=== PATIENT | female | born 1960 | race Caucasian/White ===

== ENCOUNTER 2022-07-24 11:36 | Inpatient (IN) ==
--- NOTE | 2022-07-24 11:56 | Emergency Department Note ---
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 The patient states that she is also had a cough which typically was not productive until recently but this cough has been ongoing since the summertime in January. Patient denies any chest pains. The patient has noticed increasing exertional fatigue. Patient does complain of shortness of breath and deconditioning with exercise but is able to perform daily tasks without any issues. Patient denies any nausea vomiting. Patient is lost approximate 10 po unds since last year. This is unintentional. The patient did have a recent chest x-ray and blood work completed in the outpatient setting and was called about the findings of her chest x-ray and scheduled an outpatient CT scan but this was not approved due to insurance issues. Patient denies any leg swelling or calf pain. No history of DVT or PE. No prior history of heart or lung disease. Patient denies any known tick bites and she has not been checked for Lyme's. Patient has trialed [id number] antihistamines for possible allergic cause and did have COVID 3 weeks prior and states that she was on a course of amoxicillin as she did have a productive cough but that the color is returned to being clear. I did review the patient's outpatient chest x-ray which was completed on the 6 which showed the patient does have a large right upper lobe mass like opacity with suspected small right pleural effusion which may represent pneumonia versus underlying mass. Patient also does have a left perihilar and apical opacity which is likely infectious. ROS: See HPI for pertinent positives and negatives. A total of 10 systems were reviewed and otherwise negative. Past medical history: See below Surgical history: See below Social history: See below Physical Exam: GENERAL: NAD, wearing a mask, non-toxic. Thin in appearance. EYE EXAM: Normal conjunctiva. PERRL, no anisocoria and EOM's grossly intact w/o pain. NECK: Supple, no nuchal rigidity, no adenopathy, non-tender. No signs of meningismus. FROM of the neck with good chin to chest and neck extension. No stridor. LUNGS: Slight decreased breath sounds right chest, normal chest wall mechanics. HEART: NSR, no MRG. ABDOMEN: Abdomen soft, non-tender, normo-active bowel sounds, no masses, no rebound or guarding. BACK: No CVA TTP. SKIN: No rashes and no bruising. UPPER EXTREMITIES: Upper extremities are grossly normal. LOWER EXTREMITIES: Grossly normal, no edema. Negative Homans' sign bilaterally. NEURO EXAM: A&O x3, cranial nerves II-XII grossly intact, normal speech, moves all 4 extremities. Differential diagnoses: Reactive airway disease, pneumonia, pneumothorax, COPD, CHF, infections, cardiac ischemia, pulmonary embolism, musculoskeletal, gastrointestinal, as well as other pathologies. Course: Patient was seen and evaluated the bedside. Full history physical exam was performed. EKG interpreted by me Normal sinus rhythm, rate of 82 normal intervals normal axis no ST elevations, T wave version V2 not in V3. No prior EKGs for comparison. Imaging Studies: See Below Cardiac monitoring: An order was placed for continuous cardiac monitoring. The monitor shows a rate of 88 with sinus rhythm. MDM: Patient presents due to concern for shortness of breath with outpatient chest x- ray showing concern for possible mass versus infectious etiology. Blood work is obtained along with CT angiography of the chest. Patient has mild leukopenia and anemia. White count is slightly low at 3.9 with hemoglobin 11. The patient does have hypercalcemia noted at 13. Magnesium slightly low 1.3. The patient was ordered IV fluids because of the hypercalcemia. Patient is positive for the flu negative for RSV and COVID. Patient CT of the chest I did discuss with Dr. Burnett the patient does not have any evidence of PE but the patient does have complete opacification of the right upper and right middle lobes with a masslike opacity which abuts and may invade the mediastinum with SVC narrowing is also abuts the right anterior chest wall. Patient also might have multifocal airspace opacities. The patient was ordered Zosyn and MRSA swab. Given the possible malignancy I did speak the on- call hospitalist Dr. Ferguson and Isabela Kulkarni PA-C. I did speak with the patient as well as the patient's daughter who is a sports medicine physician and did review the findings with the patient and the patient's daughter. They are agreeable to inpatient treatment and further care at this time. Patient was admitted to the medicine service. Patient is not in significant respiratory distress. Pulm consulted. Past Med/Surg History Medical History Fibroid Melanoma Surgical History History of bowel resection at age 38 due to volvulus, 8in removed S/P colonoscopy S/P inguinal hernia repair S/P tonsillectomy S/P wisdom tooth extraction Status post hysteroscopic polypectomy x2 Status post labral repair of shoulder left Family History Denies family history of Ovarian cancer Breast cancer Colorectal cancer Uterine cancer Social History Smoking Status: Never smoker Hx Alcohol Use: Yes Hx Substance Use: No marital status: Current Living Situation: Family Feels Safe at Home: Yes Allergies Allergies Allergy/AdvReac Type Severity Reaction Status Date / Time No Known Allergies Allergy Verified 07/24/22 15:03 Home Meds Home Medications Medication Instructions Recorded Confirmed multivitamin 1 tab PO DAILY 01/05/21 07/24/22 cholecalciferol (vitamin D3) 50 50 mcg PO DAILY 07/24/22 07/24/22 mcg (2,000 unit) capsule (Vitamin D3) magnesium glycinate 100 mg tablet 100 mg PO HS PRN LEG CRAMPS 07/24/22 07/24/22 psyllium husk 3.4 gram/5.4 gram 1 tsp PO DAILY 07/24/22 07/24/22 oral powder (Metamucil) Results & Data (ED) Vital Signs Vital Signs - 24 hr 07/24/22 11:44 07/24/22 13:36 07/24/22 15:00 Temperature 36.8 C Temperature Source Temporal Artery Scan Pulse Rate 91 H Pulse Rate [Right Finger] 83 83 Respiratory Rate 18 18 20 Respiratory Effort / Characteristics Non-Labored Spontaneous Non-Labored Respiratory Depth Normal Normal Blood Pressure 129/80 Blood Pressure [Right Arm] 120/67 135/86 Blood Pressure Mean 96 Blood Pressure Mean [Right Arm] 84 102 Pulse Oximetry 95 99 94 Oxygen Delivery Method Room Air Room Air Room Air Sepsis Recent Fever Within 48 Hours No Sepsis New/Unexplained Change in Mental Status No Sepsis Action Taken by Nursing No Action Required Home Medications Current Medication List: was personally reviewed by me Laboratory Data Attestation: I reviewed the patient's lab results. Result diagrams: 07/24/22 12:00 07/24/22 12:00 Lab Results 07/24/22 07/24/22 07/24/22 Range/Units 12:00 12:00 12:00 WBC 3.94 L (4.8-10.8) K/ul RBC 4.14 (3.93-5.22) M/uL Hgb 11.1 L (12.0-16.0) g/dl Hct 33.9 L (34.1-44.9) % MCV 81.9 (80.0-100.0) fL MCH 26.8 (25.0-34.0) pg MCHC 32.7 (32.0-36.0) g/dL RDW Std Deviation 43.3 (36.4-46.3) fL RDW Coeff of Aroldo 14.6 H (11.5-14.5) % Plt Count 260 (130-400) K/uL MPV 10.4 (9.4-12.3) fL Immature Gran % (Auto) 0.5 % Neut % (Auto) 59.9 % Lymph % (Auto) 24.1 % Irion % (Auto) 12.9 % Eos % (Auto) 1.8 % Baso % (Auto) 0.8 % Neut # (Auto) 2.36 (1.4-6.5) K/uL Lymph # (Auto) 0.95 L (1.2-3.4) K/uL Irion # (Auto) 0.51 (0.24-0.82) K/uL Eos # (Auto) 0.07 (0-0.50) K/uL Baso # (Auto) 0.03 (0-0.2) K/uL Immature Gran # (Auto) 0.02 (0.00-0.02) K/uL Sodium (136-145) mmol/L Potassium (3.5-5.1) mmol/L Chloride (98-107) mmol/L Carbon Dioxide (21-32) mmol/L Anion Gap (3-11) BUN (6-23) mg/dl Creatinine (0.6-1.2) mg/dl Est Cr Clr Drug Dosing ml/min Est GFR ( Amer) ml/min Est GFR (Non-Af Amer) ml/min BUN/Creatinine Ratio (10-20) Glucose (70-99(Fasting)) mg/dl Calcium (8.5-10.1) mg/dl Phosphorus (2.5-4.9) mg/dl Magnesium (1.7-2.4) mg/dl Total Bilirubin (0.2-1.0) mg/dl AST (13-39) U/L ALT (7-52) U/L Alkaline Phosphatase (34-104) U/L Troponin I High Sens (0-14) pg/ml Total Protein (6.0-8.3) gm/dl Albumin (3.4-5.0) gm/dl Globulin (2.5-4.0) gm/dl Albumin/Globulin Ratio (0.9-2) 25-OH Vitamin D Total (30-100) ng/ml Procalcitonin (0-0.5) ng/ml TSH 1.540 (0.300-4.500) uIu/ml Nasal Screen MRSA (PCR) (Negative) Lyme Disease IgG Ab Negative (Negative) Lyme Disease IgM Ab Negative (Negative) SARS-CoV-2 (PCR) (Negative) Influenza Type A (PCR) (Neg) Influenza Type B (PCR) (Neg) RSV (RT-PCR) (Neg) 07/24/22 07/24/22 07/24/22 Range/Units 12:00 12:00 12:00 WBC (4.8-10.8) K/ul RBC (3.93-5.22) M/uL Hgb (12.0-16.0) g/dl Hct (34.1-44.9) % MCV (80.0-100.0) fL MCH (25.0-34.0) pg MCHC (32.0-36.0) g/dL RDW Std Deviation (36.4-46.3) fL RDW Coeff of Aroldo (11.5-14.5) % Plt Count (130-400) K/uL MPV (9.4-12.3) fL Immature Gran % (Auto) % Neut % (Auto) % Lymph % (Auto) % Irion % (Auto) % Eos % (Auto) % Baso % (Auto) % Neut # (Auto) (1.4-6.5) K/uL Lymph # (Auto) (1.2-3.4) K/uL Irion # (Auto) (0.24-0.82) K/uL Eos # (Auto) (0-0.50) K/uL Baso # (Auto) (0-0.2) K/uL Immature Gran # (Auto) (0.00-0.02) K/uL Sodium 138 (136-145) mmol/L Potassium 3.8 (3.5-5.1) mmol/L Chloride 104 (98-107) mmol/L Carbon Dioxide 27 (21-32) mmol/L Anion Gap 7 (3-11) BUN 31 H (6-23) mg/dl Creatinine 1.08 (0.6-1.2) mg/dl Est Cr Clr Drug Dosing 48.2 ml/min Est GFR ( Amer) 63.3 ml/min Est GFR (Non-Af Amer) 54.6 ml/min BUN/Creatinine Ratio 28.7 H (10-20) Glucose 90 (70-99(Fasting)) mg/dl Calcium 13.1 H* (8.5-10.1) mg/dl Phosphorus 3.6 (2.5-4.9) mg/dl Magnesium 1.3 L (1.7-2.4) mg/dl Total Bilirubin 0.3 (0.2-1.0) mg/dl AST 18 (13-39) U/L ALT 16 (7-52) U/L Alkaline Phosphatase 61 (34-104) U/L Troponin I High Sens 3.8 (0-14) pg/ml Total Protein 6.5 (6.0-8.3) gm/dl Albumin 3.5 (3.4-5.0) gm/dl Globulin 3.0 (2.5-4.0) gm/dl Albumin/Globulin Ratio 1.2 (0.9-2) 25-OH Vitamin D Total (30-100) ng/ml Procalcitonin 0.19 (0-0.5) ng/ml TSH (0.300-4.500) uIu/ml Nasal Screen MRSA (PCR) (Negative) Lyme Disease IgG Ab (Negative) Lyme Disease IgM Ab (Negative) SARS-CoV-2 (PCR) (Negative) Influenza Type A (PCR) (Neg) Influenza Type B (PCR) (Neg) RSV (RT-PCR) (Neg) 07/24/22 07/24/22 07/24/22 Range/Units 12:00 14:27 15:05 WBC (4.8-10.8) K/ul RBC (3.93-5.22) M/uL Hgb (12.0-16.0) g/dl Hct (34.1-44.9) % MCV (80.0-100.0) fL MCH (25.0-34.0) pg MCHC (32.0-36.0) g/dL RDW Std Deviation (36.4-46.3) fL RDW Coeff of Aroldo (11.5-14.5) % Plt Count (130-400) K/uL MPV (9.4-12.3) fL Immature Gran % (Auto) % Neut % (Auto) % Lymph % (Auto) % Irion % (Auto) % Eos % (Auto) % Baso % (Auto) % Neut # (Auto) (1.4-6.5) K/uL Lymph # (Auto) (1.2-3.4) K/uL Irion # (Auto) (0.24-0.82) K/uL Eos # (Auto) (0-0.50) K/uL Baso # (Auto) (0-0.2) K/uL Immature Gran # (Auto) (0.00-0.02) K/uL Sodium (136-145) mmol/L Potassium (3.5-5.1) mmol/L Chloride (98-107) mmol/L Carbon Dioxide (21-32) mmol/L Anion Gap (3-11) BUN (6-23) mg/dl Creatinine (0.6-1.2) mg/dl Est Cr Clr Drug Dosing ml/min Est GFR ( Amer) ml/min Est GFR (Non-Af Amer) ml/min BUN/Creatinine Ratio (10-20) Glucose (70-99(Fasting)) mg/dl Calcium (8.5-10.1) mg/dl Phosphorus (2.5-4.9) mg/dl Magnesium (1.7-2.4) mg/dl Total Bilirubin (0.2-1.0) mg/dl AST (13-39) U/L ALT (7-52) U/L Alkaline Phosphatase (34-104) U/L Troponin I High Sens (0-14) pg/ml Total Protein (6.0-8.3) gm/dl Albumin (3.4-5.0) gm/dl Globulin (2.5-4.0) gm/dl Albumin/Globulin Ratio (0.9-2) 25-OH Vitamin D Total 59.0 (30-100) ng/ml Procalcitonin (0-0.5) ng/ml TSH (0.300-4.500) uIu/ml Nasal Screen MRSA (PCR) Negative (Negative) Lyme Disease IgG Ab (Negative) Lyme Disease IgM Ab (Negative) SARS-CoV-2 (PCR) NEGATIVE (Negative) Influenza Type A (PCR) Positive A* (Neg) Influenza Type B (PCR) Negative (Neg) RSV (RT-PCR) Negative (Neg) Administered Medications Sodium Chloride (Nss 1000ml) 1,000 mls @ 150 mls/hr IV .[id number] ROGER Stop: 08/23/22 15:14 Last Admin: 07/24/22 15:29 Dose: 150 mls/hr Documented By: DANIELLE Discontinued Medications Sodium Chloride (Nss 1000ml) 1,000 mls @ 999 mls/hr IV .Q1H1M ONE Stop: 07/24/22 14:12 Last Infusion: 07/24/22 14:48 Dose: 0 mls/hr Documented By: Admin: 07/24/22 13:38 Dose: 999 mls/hr Documented By: RADHA Piperacillin Sod/Tazobactam Sod (Zosyn) 4.5 gm in 120 mls @ 240 mls/hr IV NOW ONE Stop: 07/24/22 14:32 Last Infusion: 07/24/22 15:33 Dose: 0 mls/hr Documented By: Admin: 07/24/22 15:03 Dose: 240 mls/hr Documented By: RADHA Ioversol (Optiray 320 500ml) 114 ml IV ONCE ONE Stop: 07/24/22 13:29 Last Admin: 07/24/22 13:31 Dose: 114 ml Documented By: EDK Imaging Data Radiologist's Impression: Chest CTA 07/24/22 12:13 CT ANGIOGRAPHY OF THE CHEST, PULMONARY EMBOLUS PROTOCOL CLINICAL HISTORY: Dyspnea. Cough. COMPARISON STUDY: Chest radiograph July 20, 2022. TECHNIQUE: Following IV administration of 114 mL of Optiray, helical axial images of the chest were obtained utilizing the pulmonary embolus protocol. Maximal intensity projections and sagittal and coronal reformats were viewed on an independent 3D workstation. IV contrast was administered without complication. Automated exposure control was utilized for the study. A dose lowering technique was utilized adhering to the principles of ALARA. CT DOSE: 295.37 mGy.cm FINDINGS: No pulmonary emboli are identified. However, multiple right-sided pulmonary arteries, including the distal right main pulmonary artery are significantly narrowed by a mass-like abnormality within the right upper and right middle lobes. This measures approximately 20 x 12 x 11.5 cm. The entire right upper and right middle lobes are opacified with occlusion of the right upper lobe and right middle lobe bronchi. Differentiation between a suspected central right lung mass and collapsed lung is difficult on this examination. This mass-like opacity abuts and may invade the mediastinum and likely narrows the SVC. This also abuts the anterior right chest wall. No associated rib erosi on is present. There is no pneumothorax or pleural effusion. There are mild tree-in-bud and groundglass opacities within the right lower lobe. Multifocal left lung airspace opacities are noted within a bronchovascular distribution. There is associated mild interlobular septal thickening. Size of the heart is normal. There is no pericardial effusion. There are prominent hypodensity within the lymph nodes. There may be mildly enlarged left hilar lymph nodes as well. No suspicious lesions within the bony thorax are noted. Visualized portions of the upper abdomen are unremarkable. IMPRESSION: 1. No pulmonary emboli identified although multiple right sided pulmonary arteries significantly narrowed by a mass-like opacity within the right upper and right middle lobes. 2. Complete opacification of the right upper and right middle lobes with a mass- like opacity which abuts and may invade the mediastinum with SVC narrowing. This also abuts the right anterior chest wall. Differentiation between a suspected central lung mass and collapsed lung is difficult however the findings are highly suggestive of an underlying neoplasm. Occluded right upper and right middle lobe bronchi with narrowing of the right lower lobe bronchus. Pulmonary consultation for consideration for bronchoscopy is recommended. 3. Moderate left lung multifocal airspace opacities within a bronchovascular distribution. Associated groundglass opacities with interlobular septal thickening. This may reflect multifocal pneumonia. However, a neoplastic process is also within the differential. 4. Prominent AP window lymph nodes and suspected mildly enlarged left hilar lymph nodes. ACT 112: Positive. There are findings on this exam that require communication between the performing entity and the patient following Patient Test Result Information Act ([place] Act 112) guidelines. Electronically signed by: Carmine Burnett M.D. 07/24/2022 1:59 PM Discharge Plan Visit Data Chief Complaint: Cough Stated Complaint: COUGH, SOB, ABNORMAL FINDINGS ON IMAGING ED Provider: Andrew Barnes Discharge Problem: Mass of right lung, Hypercalcemia, Pneumonia, Dyspnea, Chronic cough Forms Stand Alone Forms: [facility] Prescriptions Prescriptions: No Action multivitamin Tablet 1 tab PO DAILY cholecalciferol (vitamin D3) [Vitamin D3] 50 mcg (2,000 unit) Capsule 50 mcg PO DAILY magnesium glycinate 100 mg Tablet 100 mg PO HS PRN (Reason: LEG CRAMPS) Metamucil 3.4 gram/5.4 gram Powder 1 tsp PO DAILY Rx Instructions: mix into at least 4 oz water or juice before administering Referrals Referrals: Rina Schafer DO [Primary Care Provider] - : Pneumonia Qualifiers: Aspiration pneumonia type: unspecified Laterality: unspecified laterality Lung location: unspecified part of lung
[2022-07-24 12:20] LABS: Basophils # (auto) 0.03 K/uL (0-0.2); Basophils % (auto) 0.8 %; Eosinophils # (auto) 0.07 K/uL (0-0.50); Eosinophils % (auto) 1.8 %; Hematocrit (blood only) 33.9 % (34.1-44.9); Hemoglobin 11.1 g/dl (12.0-16.0); Immature Granulocytes # (auto) 0.02 K/uL (0.00-0.02); Immature Granulocytes % (auto) 0.5 %; Lymphocytes # (auto) 0.95 K/uL (1.2-3.4); Lymphocytes % (auto) 24.1 %; Mean Corpuscular Hemoglobin 26.8 pg (25.0-34.0); Mean Corpuscular Hgb Conc 32.7 g/dL (32.0-36.0); Mean Corpuscular Volume 81.9 fL (80.0-100.0); Mean Platelet Volume 10.4 fL (9.4-12.3); Monocytes # (auto) 0.51 K/uL (0.24-0.82); Monocytes % (auto) 12.9 %; Neutrophils # (auto) 2.36 K/uL (1.4-6.5); Neutrophils % (auto) 59.9 %; Platelet Count 260 K/uL (130-400); RDW Coefficient of Variation 14.6 % (11.5-14.5); RDW Standard Deviation 43.3 fL (36.4-46.3); Red Blood Count 4.14 M/uL (3.93-5.22); White Blood Count 3.94 K/ul (4.8-10.8)
[2022-07-24 13:01] LABS: Albumin Globulin Ratio 1.2 (0.9-2); Albumin Level 3.5 gm/dl (3.4-5.0); BUN Creatinine Ratio 28.7 (10-20); Bilirubin,Total 0.3 mg/dl (0.2-1.0); Calcium 13.1 mg/dl (8.5-10.1); Creatinine Clr Calc Pharmacy 48.2 ml/min; Est GFR (African American) 63.3 ml/min; Est GFR (Non-African American) 54.6 ml/min; Potassium 3.8 mmol/L (3.5-5.1); Total Protein 6.5 gm/dl (6.0-8.3); Troponin I High Sensitivity 3.8 pg/ml (0-14)
[2022-07-24 13:07] LABS: Lyme Ab IgG w/WB Rflx Negative (Negative); Lyme Ab IgM w/WB Rflx Negative (Negative)
[2022-07-24] MEDS ORDERED: SODIUM CHLORIDE 0.9% 1000ML 1,000 ML IV ONE (13:12)
[2022-07-24] MEDS ORDERED: OPTIRAY 320 500ml IV ONE (13:28)
--- NOTE | 2022-07-24 14:01 | CT Scan Report ---
CT ANGIOGRAPHY OF THE CHEST, PULMONARY EMBOLUS PROTOCOL CLINICAL HISTORY: Dyspnea. Cough. COMPARISON STUDY: Chest radiograph July 20, 2022. TECHNIQUE: Following IV administration of 114 mL of Optiray, helical axial images of the chest were o btained utilizing the pulmonary embolus protocol. Maximal intensity projections and sagittal and cor onal reformats were viewed on an independent 3D workstation. IV contrast was administered without co mplication. Automated exposure control was utilized for the study. A dose lowering technique was ut ilized adhering to the principles of ALARA. CT DOSE: 295.37 mGy.cm FINDINGS: No pulmonary emboli are identified. However, multiple right-sided pulmonary arteries, incl uding the distal right main pulmonary artery are significantly narrowed by a mass-like abnormality wi thin the right upper and right middle lobes. This measures approximately 20 x 12 x 11.5 cm. The entir e right upper and right middle lobes are opacified with occlusion of the right upper lobe and right m iddle lobe bronchi. Differentiation between a suspected central right lung mass and collapsed lung is difficult on this examination. This mass-like opacity abuts and may invade the mediastinum and likel y narrows the SVC. This also abuts the anterior right chest wall. No associated rib erosion is presen t. There is no pneumothorax or pleural effusion. There are mild tree-in-bud and groundglass opacities within the right lower lobe. Multifocal left lung airspace opacities are noted within a bronchovascu lar distribution. There is associated mild interlobular septal thickening. Size of the heart is ruddy l. There is no pericardial effusion. There are prominent hypodensity within the lymph nodes. There ma y be mildly enlarged left hilar lymph nodes as well. No suspicious lesions within the bony thorax are noted. Visualized portions of the upper abdomen are unremarkable. IMPRESSION: 1. No pulmonary emboli identified although multiple right sided pulmonary arteries significantly narr owed by a mass-like opacity within the right upper and right middle lobes. 2. Complete opacification of the right upper and right middle lobes with a mass-like opacity which ab uts and may invade the mediastinum with SVC narrowing. This also abuts the right anterior chest wall. Differentiation between a suspected central lung mass and collapsed lung is difficult however the fi ndings are highly suggestive of an underlying neoplasm. Occluded right upper and right middle lobe br onchi with narrowing of the right lower lobe bronchus. Pulmonary consultation for consideration for b ronchoscopy is recommended. 3. Moderate left lung multifocal airspace opacities within a bronchovascular distribution. Associated groundglass opacities with interlobular septal thickening. This may reflect multifocal pneumonia. Ho wever, a neoplastic process is also within the differential. 4. Prominent AP window lymph nodes and suspected mildly enlarged left hilar lymph nodes. ACT 112: Positive. There are findings on this exam that require communication between the performing entity and the patient following Patient Test Result Information Act ([place] Act 112) guidelines. Electronically signed by: Carmine Burnett M.D. 07/24/2022 1:59 PM
[2022-07-24] MEDS ORDERED: PIPERACILLIN/TAZOBACTAM 4.5 GM/120 ML BAG IV ONE (14:03)
--- NOTE | 2022-07-24 14:30 | History & Physical Report ---
Date of Service July 24, 2022 Assessment & Plan (1) Mass of right lung: Plan: - Ongoing SOB and dry cough for 6 months, coupled with 10 lb weight loss, hypercalcemia--all very concerning for a malignancy. - VSS, she is satting 95-99% on RA. Does have a productive cough during visit. - CXR 07/20 (outpatient): Large right upper lobe mass-like opacity with suspected small right pleural effusion. This may represent a large focus of pneumonia however an underlying mass cannot be excluded. A CT of the chest with IV contrast is recommended for further evaluation. This finding will be called/faxed to the ordering provider at time of dictation. Left perihilar and a pical opacity which is likely infectious but can be assessed on follow-up CT. - Chest CTA 07/24: * Complete opacification of the right upper and right middle lobes with a mass- like opacity, approximately 20 x 12 x 11.5 cm, which abuts and may invade the mediastinum with SVC narrowing. This also abuts the right anterior chest wall. Differentiation between a suspected central lung mass and collapsed lung is difficult however the findings are highly suggestive of an underlying neoplasm. Occluded right upper and right middle lobe bronchi with narrowing of the right lower lobe bronchus. Pulmonary consultation for consideration for bronchoscopy is recommended. * Moderate left lung multifocal airspace opacities within a bronchovascular distribution. Associated groundglass opacities with interlobular septal thickening. This may reflect multifocal pneumonia. However, a neoplastic process is also within the differential. * Prominent AP window lymph nodes and suspected mildly enlarged left hilar lymph nodes. * No pulmonary emboli identified although multiple right sided pulmonary arteries significantly narrowed by a mass-like opacity within the right upper and right middle lobes. - Pulmonology consulted on admission, appreciate recommendations and assistance with this patient. - A procalcitonin and COVID/flu/RSV are all pending. Will hold off further antibiotics unless procal elevated, per pulmonology recommendations. (2) Hypercalcemia: Plan: - 13.1, given the large right lung mass, hypercalcemia very concerning for underlying malignancy. Does take a vitamin D supplement at home, approrpiate dosing. - Fluids in the ER, will continue IV fluids. - PTH, PTh-RTH, vtiamin D, iCal, phosphorus, magnesium all ordered--pending. - Repeat BMP this evening and in AM. Plan - Admit to med/tele. - SCDs, Lovenox for VTE ppx. - Full Code. 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 Patient has had an ongoing nonproductive cough since January with progressive fatigue and ex ertional shortness of breath since then. She has also lost 10 pounds over the last year, which has been unintentional. Since the summer, she has noticed new shortness of breath with walking up hills and exercising. She is previously very healthy and active, working out 5-7 days/week without difficulty previous to this summer. She has had several upper respiratory illnesses in the past 2 months, one at the end of May which was not COVID, and most recently had COVID 3 weeks ago and was treated with outpatient antibiotics and initially thought she recovered, however shortness of breath returned, worse than normal and is causing her to be significantly dyspneic after walking up and down the stairs. She was recently seen as an outpatient for this and had CXR and blood work done. She received a call about findings on her CXR, and was to have an outpatient CT scan done yesterday, however insurance did not approve this. On presentation, her vital signs are within normal limits and stable. She is 99% on room air. Labs are remarkable for a leukopenia of 3.94, Hgb 11.1, platelets within normal limits. Calcium 13.1. CXR from 07/20 shows a large right upper lobe masslike opacity, measuring 12.6 x 8.5 cm with suspected small right pleural effusion, possibly representing underlying mass cannot be excluded. Chest CTA in ED today shows complete opacification of the right upper and middle lobes with masslike opacity with abuts and may invade mediastinum with SVC narrowing, also abuts the right anterior chest wall. Suspected central lung mass versus collapsed lung, however read as highly suspicious for underlying neoplasm per radiology. There is also an occluded right upper and right middle lobe bronchi with narrowing of the right lower bronchus. There is also moderate left lung multifocal airspace opacities within a bronchovascular distribution, associated groundglass opacities with interlobular septal thickening, possibly reflection of multifocal pneumonia versus neoplastic process. There are prominent AP window lymph nodes if suspected mildly enlarged left hilar lymph nodes. Pulmonary emboli identified, however there are multiple right-sided pulmonary artery significantly narrowed by the masslike opacity within the right upper and middle lobes. Allergies Allergy/AdvReac Type Severity Reaction Status Date / Time No Known Allergies Allergy Verified 07/24/22 15:03 Home Medications Medication Instructions Recorded Confirmed Type multivitamin 1 tab PO DAILY 01/05/21 07/24/22 History cholecalciferol (vitamin D3) 50 50 mcg PO DAILY 07/24/22 07/24/22 History mcg (2,000 unit) capsule (Vitamin D3) magnesium glycinate 100 mg tablet 100 mg PO HS PRN LEG CRAMPS 07/24/22 07/24/22 History psyllium husk 3.4 gram/5.4 gram 1 tsp PO DAILY 07/24/22 07/24/22 History oral powder (Metamucil) Past Med/Surg History Medical History Fibroid Melanoma Surgical History History of bowel resection at age 38 due to volvulus, 8in removed S/P colonoscopy S/P inguinal hernia repair S/P tonsillectomy S/P wisdom tooth extraction Status post hysteroscopic polypectomy x2 Status post labral repair of shoulder left Family History Denies family history of Ovarian cancer Breast cancer Colorectal cancer Uterine cancer Social History Smoking Status: Never smoker Second Hand Exposure: No; Hx Alcohol Use: Yes Alcohol type: beer Hx Substance Use: No Preferred Language: Korean Communication Ability: Effective Label Pinker Required: No Beliefs That Will Affect Care: None marital status: Current Living Situation: Spouse Feels Safe at Home: Yes Assistive Devices: None Review of Systems Review of Systems: Constitutional: Fatigue and general weakness ongoing for the past several weeks; 10 pound weight loss over the past year, denies night sweats Eyes: No diplopia, no worsening or blurred vision ENT: normal hearing, no trouble swallowing Respiratory: Progressive shortness of breath with exertion, cough +/- production since January, significantly worse in the past month Cardiovascular: No chest pain, tightness or palpitations Abdomen: No pain, nausea, vomiting, diarrhea or constipation Musculoskeletal: No joint pain, calf pain, swelling Neurologic: No weakness, numbness/tingling, or balance problems Psychiatric: No anxiety or depression Skin: No rash or itch Physical Exam Physical Exam: General: awake, alert, no apparent distress Head: Normocephalic, atraumatic ENT: PERRL, EOMI, no pharyngeal exudate, mucous membranes moist Chest: Clear to auscultation, on room air, no adventitious breath sounds Cardiac: Regular rate and rhythm, no murmur, no JVD, normal peripheral pulses, good capillary refill Abdominal: NABS x 4 quadrants, soft, nontender to palpation, no rebound, guarding or tenderness Extremities: Normal inspection, no peripheral edema or erythema, calfs nonte nder to palpation Psych: Normal mood and affect Neuro: AAO x 3, strength intact bilaterally and rated 5/5, no motor deficits, speech is clear, no peripheral sensory deficits Skin: no rash or erythema Results & Data Results & Data ([facility]) Vital Signs (Past 12 Hours) Vital Signs Temp Pulse Pulse Resp BP BP Pulse Ox 07/24/22 13:36 83 18 120/67 99 07/24/22 11:44 36.8 C 91 H 18 129/80 95 O2 Del Method 07/24/22 13:36 Room Air 07/24/22 11:44 Room Air Laboratory Results Abnormal lab results 07/24/22 07/24/22 Range/Units 12:00 12:00 WBC 3.94 L (4.8-10.8) K/ul Hgb 11.1 L (12.0-16.0) g/dl Hct 33.9 L (34.1-44.9) % RDW Coeff of Aroldo 14.6 H (11.5-14.5) % Lymph # (Auto) 0.95 L (1.2-3.4) K/uL BUN 31 H (6-23) mg/dl BUN/Creatinine Ratio 28.7 H (10-20) Calcium 13.1 H* (8.5-10.1) mg/dl Diagnostic Findings Chest CTA 07/24/22 12:13 CT ANGIOGRAPHY OF THE CHEST, PULMONARY EMBOLUS PROTOCOL CLINICAL HISTORY: Dyspnea. Cough. COMPARISON STUDY: Chest radiograph July 20, 2022. TECHNIQUE: Following IV administration of 114 mL of Optiray, helical axial images of the chest were obtained utilizing the pulmonary embolus protocol. Maximal intensity projections and sagittal and coronal reformats were viewed on an independent 3D workstation. IV contrast was administered without complication. Automated exposure control was utilized for the study. A dose lowering technique was utilized adhering to the principles of ALARA. CT DOSE: 295.37 mGy.cm FINDINGS: No pulmonary emboli are identified. However, multiple right-sided pulmonary arteries, including the distal right main pulmonary artery are significantly narrowed by a mass-like abnormality within the right upper and right middle lobes. This measures approximately 20 x 12 x 11.5 cm. The entire right upper and right middle lobes are opacified with occlusion of the right upper lobe and right middle lobe bronchi. Differentiation between a suspected central right lung mass and collapsed lung is difficult on this examination. This mass-like opacity abuts and may invade the mediastinum and likely narrows the SVC. This also abuts the anterior right chest wall. No associated rib erosion is present. There is no pneumothorax or pleural effusion. There are mild tree-in-bud and groundglass opacities within the right lower lobe. Multifocal left lung airspace opacities are noted within a bronchovascular distribution. There is associated mild interlobular septal thickening. Size of the heart is normal. There is no pericardial effusion. There are prominent hypodensity within the lymph nodes. There may be mildly enlarged left hilar lymph nodes as well. No suspicious lesions within the bony thorax are noted. Visualized portions of the upper abdomen are unremarkable. IMPRESSION: 1. No pulmonary emboli identified although multiple right sided pulmonary arteries significantly narrowed by a mass-like opacity within the right upper and right middle lobes. 2. Complete opacification of the right upper and right middle lobes with a mass- like opacity which abuts and may invade the mediastinum with SVC narrowing. This also abuts the right anterior chest wall. Differentiation between a suspected central lung mass and collapsed lung is difficult however the findings are highly suggestive of an underlying neoplasm. Occluded right upper and right middle lobe bronchi with narrowing of the right lower lobe bronchus. Pulmonary consultation for consideration for bronchoscopy is recommended. 3. Moderate left lung multifocal airspace opacities within a bronchovascular distribution. Associated groundglass opacities with interlobular septal thic kening. This may reflect multifocal pneumonia. However, a neoplastic process is also within the differential. 4. Prominent AP window lymph nodes and suspected mildly enlarged left hilar lymph nodes. ACT 112: Positive. There are findings on this exam that require communication between the performing entity and the patient following Patient Test Result Information Act ([place] Act 112) guidelines. Electronically signed by: Carmine Burnett M.D. 07/24/2022 1:59 PM ECG Additional Comments: Normal sinus rhythm Possible Left atrial enlargement Borderline ECG No previous ECGs available Code Status & VTE Plan Code Status Full Code. Supervising Physician Co-Signing Physician Notes I personally saw and examined the patient. I verified all prieto points and agree with Isabela Kulkarni PA-C with the following exceptions and/or additions: 61 year old female presents to the ER due to mass on right lung, concerning for SCC given concurrent hypercalcemia. Feeling fatigued but no definitive muscle weakness. No paresthesia or constipation. O/E Cachectic, Chest CTAB, HS1+2, no murmurs A/P Mass on lung - discussed with pulmonology to consider bronchoscopy on Tuesday. Consult pulmonology. Procalcitonin negative - low suspicion of bacterial infection, this all appears to be cancer and will defer antibiotics. Cepheid PCR ordered. Hypercalcemia - corrected calcium 13.5 in moderate range, ionized in mild range. Main reason for admission, will rehydrate as she appears to be somewhat dry. Although PTH suggests she will need bisphosphonate, will defer this depending on her calcium levels tomorrow. Vit D WNL. PTHrP sent PG Care Time/CCT Total # of Minutes Spent Total Time Spent with Patient: Total time spent is greater than 50% in coordination of care (as documented) at patient's floor/unit and/or counseling patient: Coding Level of Care Code 89591 Initial Inpt Care Lvl 3 Diagnoses Mass of right lung R91.8 Hypercalcemia E83.52
[2022-07-24] MEDS: SODIUM CHLORIDE 0.9% 1000ML 1,000 ML IV SCH ×2 (15:29→23:34)
[2022-07-24 15:57] LABS: Magnesium 1.3 mg/dl (1.7-2.4); Phosphorus 3.6 mg/dl (2.5-4.9)
[2022-07-24 15:59] LABS: Influenza B virus by PCR Negative (Neg); RSV by PCR Negative (Neg); SARS CoV2 RNA(COVID-19) Ceph NEGATIVE (Negative)
[2022-07-24 16:09] LABS: Influenza A virus by PCR Positive (Neg)
--- NOTE | 2022-07-24 16:24 | Pulmonary Consultation ---
Date of Consultation July 24, 2022 Assessment & Plan (1) Mass of right lung: (2) Hypercalcemia: Plan Highly suspect primary lung cancer with evidence of large right upper lobe mass and malignant hypercalcemia. Possible lymphangitic spread to the left upper lobe as well versus pneumonia. Bronchoscopic biopsy can be performed early next week by one my colleagues since I will be off after Tuesday. MRI brain ordered for staging purposes. Patient will need outpatient PET scan. Recommend making oncology aware. Agree with IV fluids for hypercalcemia. Check PTH RP. Agree with broad-spectrum antibiotics. History of Present Illness Reason for Consultation: Large lung mass suspicious for lung cancer. History of Present Illness 61-year-old female with a history of melanoma excised 30 years ago, colon resection 20 years ago who presented to the hospital due to cough and weakness. He has been having significant weight loss over the last few weeks. She was found to have malignant hypercalcemia on presentation and she had a CT of her chest which revealed a very large right upper lobe lung mass with postobstructive collapse and subcarinal lymphadenopathy concerning for malignancy. Patient's daughter is a physician and I discussed the case with her at bedside. She is a lifelong non-smoker. No family history of lung cancer. Allergies Allergy/AdvReac Type Severity Reaction Status Date / Time No Known Allergies Allergy Verified 07/24/22 15:03 Home Medications Medication Instructions Recorded Confirmed Type multivitamin 1 tab PO DAILY 01/05/21 07/24/22 History cholecalciferol (vitamin D3) 50 50 mcg PO DAILY 07/24/22 07/24/22 History mcg (2,000 unit) capsule (Vitamin D3) magnesium glycinate 100 mg tablet 100 mg PO HS PRN LEG CRAMPS 07/24/22 07/24/22 History psyllium husk 3.4 gram/5.4 gram 1 tsp PO DAILY 07/24/22 07/24/22 History oral powder (Metamucil) Patient History Medical History Fibroid Melanoma Surgical History History of bowel resection at age 38 due to volvulus, 8in removed S/P colonoscopy S/P inguinal hernia repair S/P tonsillectomy S/P wisdom tooth extraction Status post hysteroscopic polypectomy x2 Status post labral repair of shoulder left Family History Denies family history of Ovarian cancer Breast cancer Colorectal cancer Uterine cancer Social History Smoking Status: Never smoker Hx Alcohol Use: Yes Hx Substance Use: No marital status: Current Living Situation: Family Feels Safe at Home: Yes Review of Systems Review of Systems: All systems reviewed & are unremarkable except as noted in HPI & below Physical Exam Physical Exam: Constitutional: Very thin appearing female in no apparent distress. Eyes: Pupils are equal round and reactive to light. Conjunctivae are normal. Anicteric sclera. Ears nose, mouth and throat: Mallampati class []. Normal posterior oropharynx. Uvula is midline. Neck: Trachea is midline. Visual inspection is normal. Respiratory: Diminished on the right. No wheezes. Cardiovascular: Regular rate and rhythm. No murmurs. No edema. Gastrointestinal: Normal bowel sounds, soft, nontender and nondistended. No hepatosplenomegaly noted. Musculoskeletal: No cyanosis. Patient is able to move all extremities. Strength is 5 out of 5 in the upper and lower extremities. Skin: No rashes, warm dry and intact. Neurologic: No obvious focal neurological deficits seen. Psychiatric: Alert and oriented x3 with a euthymic affect. Results & Data Results & Data ([facility]) Vital Signs (Past 12 Hours) Vital Signs Temp Pulse Pulse Resp BP BP Pulse Ox 07/24/22 15:00 83 20 135/86 94 07/24/22 13:36 83 18 120/67 99 07/24/22 11:44 36.8 C 91 H 18 129/80 95 O2 Del Method 07/24/22 15:00 Room Air 07/24/22 13:36 Room Air 07/24/22 11:44 Room Air PG Care Time/CCT Total # of Minutes Spent Total Time Spent with Patient: Total time spent is greater than 50% in coordination of care (as documented) at patient's floor/unit and/or counseling patient: Coding Level of Care Code 74419 Inpt Consult Level 4 Diagnoses Mass of right lung R91.8 Hypercalcemia E83.52
[2022-07-24] MEDS ORDERED: LORazepam 2 MG/1 ML VIAL IV STA (16:55)
[2022-07-24] MEDS ORDERED: GADOBUTROL 65ML VIAL IV ONE (17:19)
--- NOTE | 2022-07-24 18:01 | Magnetic Resonance Report ---
MRI OF THE BRAIN WITHOUT AND WITH IV CONTRAST CLINICAL HISTORY: Abnormal chest CT. Evaluate for metastatic disease. COMPARISON STUDY: No previous studies for comparison. TECHNIQUE: Utilizing a 1.5 Shyanne magnet and dedicated coil, multiplanar, multiecho imaging of the br ain was performed pre and postcontrast administration. IV administration of Gadavist contrast was un eventful. Thin cut T1 post contrast imaging was performed. FINDINGS: This study is mildly compromised by motion artifact although is diagnostic. There are no fo ci of restricted diffusion to suggest acute infarct. No acute intracranial hemorrhage, midline shift or mass effect is present. Brain volume is normal. Ventricular system is normal. Basal cisterns are p atent. There are no extra axial collections. Flow-voids for the major intracranial vessels are presen t. There is no intracranial mass or pathologic enhancement. A few small white matter T2 hyperintense foci suggest mild small vessel disease. No suspicious calvarial replacement is present. There are air -fluid levels within the maxillary and sphenoid sinuses. IMPRESSION: 1. No evidence of metastatic disease. 2. No acute intracranial findings. 3. Maxillary and sphenoid sinus air-fluid levels. This could reflect acute sinusitis. ACT 112: Negative or not required by law. Electronically signed by: Carmine Burnett M.D. 07/24/2022 5:59 PM
[2022-07-24] MEDS ORDERED: ALUMINUM/MAGNESIUM SUSP 30 ML UDC PO PRN (20:06)
[2022-07-24] MEDS ORDERED: POLYETHYLENE (MIRALAX) 17 GM PACK PO PRN (20:06)
[2022-07-24] MEDS ORDERED: ENOXAPARIN INJ 40 MG/0.4 ML SYR SQ SCH (20:06)
[2022-07-24] MEDS ORDERED: NON-FORMULARY MEDICATION (Magnesium Glycinate 100 mg Tablet) PO PRN (20:06)
[2022-07-24 20:44] LABS: BUN Creatinine Ratio 25.7 (10-20); Calcium 11.7 mg/dl (8.5-10.1); Creatinine Clr Calc Pharmacy 47.8 ml/min; Est GFR (African American) 62.6 ml/min; Potassium 3.6 mmol/L (3.5-5.1)
[2022-07-24] MEDS: ACETAMINOPHEN 325 MG TAB PO PRN (21:45)
[2022-07-24] MEDS ORDERED: PNEUMOCOCCAL POLYSACCHARIDES 25 MCG/0.5 ML VIAL/SYR IM ONE (21:59)
[2022-07-25] MEDS: ACETAMINOPHEN 325 MG TAB PO PRN ×2 (03:34→08:14)
[2022-07-25] MEDS: SODIUM CHLORIDE 0.9% 1000ML 1,000 ML IV SCH ×3 (06:07→17:51)
[2022-07-25 07:31] LABS: Basophils # (auto) 0.02 K/uL (0-0.2); Basophils % (auto) 0.6 %; Eosinophils # (auto) 0.01 K/uL (0-0.50); Eosinophils % (auto) 0.3 %; Hematocrit (blood only) 28.7 % (34.1-44.9); Hemoglobin 9.5 g/dl (12.0-16.0); Immature Granulocytes # (auto) 0.01 K/uL (0.00-0.02); Immature Granulocytes % (auto) 0.3 %; Lymphocytes # (auto) 1.04 K/uL (1.2-3.4); Lymphocytes % (auto) 31.3 %; Mean Corpuscular Hemoglobin 26.7 pg (25.0-34.0); Mean Corpuscular Hgb Conc 33.1 g/dL (32.0-36.0); Mean Corpuscular Volume 80.6 fL (80.0-100.0); Mean Platelet Volume 10.8 fL (9.4-12.3); Monocytes % (auto) 15.1 %; Neutrophils # (auto) 1.74 K/uL (1.4-6.5); Neutrophils % (auto) 52.4 %; Platelet Count 195 K/uL (130-400); RDW Coefficient of Variation 14.7 % (11.5-14.5); Red Blood Count 3.56 M/uL (3.93-5.22); White Blood Count 3.32 K/ul (4.8-10.8)
--- NOTE | 2022-07-25 07:39 | Hospitalist Progress Note ---
Date of Service July 25, 2022 Assessment & Plan (1) Mass of right lung: Plan: 61-year-old woman with past medical history of melanoma s/p excision (approximately 30 years ago), volvulus c/b colonic resection (~20 years ago) who presented to hospital with progressive dyspnea on exertion, fatigue and admitted for right lung mass, viral pneumonia. Right lung mass/hypercalcemia -Nonproductive cough, worsening fatigue, dyspnea on exertion since January. Unintentional 10 pound weight loss since April. Patient is a lifelong non- smoker without family history of lung cancer. -CXR 07/20 showed large right upper lobe opacity 12.6 x 8.5 cm. Chest CTA showed complete opacification of right upper and middle lobes with masslike opacity possibly invading mediastinum (SVC narrowing), right anterior chest wall. -Leukopenia 3.94, calcium 13.1 noted on admission. PTH 2.7, PTHrP pending. Patient received 1 dose of IV Zosyn in the ED, MRSA nares swab negative. -Pulmonary consult: Suspect primary lung cancer, malignant hypercalcemia with possible lymphangitic spread to left upper lobe as well (vs pneumonia). MRI brain ordered for staging purposes (negative). Also recommended outpatient PET scan. * Empiric antibiotic therapy: IV ceftriaxone 2 g every 24 hours * Continue IV fluids for hypercalcemia, PTHrP pending * Bronchoscopic biopsy scheduled for Tuesday. N.p.o. at midnight. * Oncology made aware Influenza A * Oseltamavir 75 mg twice daily * Flonase nasal spray, ipratropium nasal spray for nasal congestion * As needed Tylenol, ibuprofen as needed for headache, fever * Zofran for nausea Code: Full code Dispo: Med-Surg telemetry FEN/GI: NPO@midnight ,NSS, regular diet DVT Prophylaxis: Lovenox 40 mg q24h PT/OT: No Consults: Pulmonary (2) Dyspnea: (3) Chronic cough: (4) Hypercalcemia: (5) Pneumonia: Admission and Anticipated Discharge Date Admission Date: July 24, 2022 Subjective No acute events overnight. Patient resting in bed comfortably on arrival. She complains of headache and cough. Otherwise, she denies chest pain, shortness of breath, nausea, or vomiting. Review of Systems Review of Systems: All systems reviewed & are unremarkable except as noted in HPI & below Physical Exam Physical Exam: General: Thin-appearing, but otherwise alert, interactive woman in no acute distress. HEENT: Normocephalic, atraumatic. EOM intact. Good conjugate gaze. Nares patent. Moist mucosal membranes. Neck: Supple. No lymphadenopathy. Normal ROM. CV: Regular rate and rhythm. Normal S1 and S2. No murmurs gallops or rubs. Respiratory: Normal respiratory effort. Lungs clear to auscultation bilaterally. No crackles, rhonchi, or wheezes. Abdomen: Soft, nondistended abdomen. No bruits heard on auscultation. No tenderness to deep palpation. No guarding or rebound. Extremities: Capillary refill <2 sec. 2+ dp equal bilaterally. No pedal edema. Neuro: Alert and oriented x3. Skin: Clean, dry, and intact. No rashes, bruises, or erythema. Results & Data Results & Data ([facility]) Vital Signs (Past 12 Hours) Vital Signs Temp Pulse Pulse Resp BP BP Pulse Ox 07/25/22 03:28 37.5 C 97 H 18 142/80 H 100 07/25/22 00:05 100 H 07/24/22 23:32 94 H 18 134/63 90 07/24/22 23:37 37.6 C H 07/24/22 19:59 84 07/24/22 22:15 07/24/22 19:42 37 C 89 18 144/80 H 97 07/24/22 21:48 37 C 89 18 144/80 H 97 07/24/22 19:42 37.0 C 89 18 144/80 H 97 O2 Del Method 07/25/22 03:28 Room Air 07/25/22 00:05 07/24/22 23:32 Room Air 07/24/22 23:37 07/24/22 19:59 07/24/22 22:15 Room Air 07/24/22 19:42 Room Air 07/24/22 21:48 Room Air 07/24/22 19:42 Room Air Resident Activity Tracking Resident Involvement: Resident Care Provided Care Provided: Adult Hospital Medicine (1) Pneumonia Aspiration pneumonia type: unspecified Laterality: unspecified laterality Lung location: unspecified part of lung
[2022-07-25 07:56] LABS: BUN Creatinine Ratio 22.5 (10-20); Calcium 10.8 mg/dl (8.5-10.1); Creatinine Clr Calc Pharmacy 59.9 ml/min; Est GFR (African American) 79.9 ml/min; Potassium 3.3 mmol/L (3.5-5.1)
[2022-07-25] MEDS: FLUTICASONE PROPIONATE NA SPR 16 GM BTL SCH (08:13)
[2022-07-25] MEDS: PSYLLIUM or GUAR GUM FIBER POWDER PACKET PO SCH (08:14)
[2022-07-25] MEDS: MAGNESIUM SULFATE / D5W 1 GM/100 ML BAG IV SCH ×4 (08:14→13:52)
[2022-07-25] MEDS: CHOLECALCIFEROL 1,000 UNITS 25 MCG TAB PO SCH (08:14)
[2022-07-25] MEDS: MULTIVITAMIN TAB PO SCH (08:14)
[2022-07-25] MEDS: OSELTAMIVIR PHOSPHATE SUSP 75 MG/12.5 ML UDP PO SCH ×2 (10:00→20:11)
[2022-07-25] MEDS ORDERED: IPRATROPIUM BROMIDE NASAL SPRAY 0.06% 15ML NAE PRN (10:07)
[2022-07-25] MEDS: ONDANSETRON INJ 2 MG/ML 2 ML VIAL IV PRN ×2 (11:34→20:15)
[2022-07-25] MEDS ORDERED: IBUPROFEN 200 MG TAB PO STA (14:16)
--- NOTE | 2022-07-25 15:33 | Communication Note ---
Date of Service: July 25, 2022 The patient was seen and examined by me. Case discussed with resident physician. Agree with assessment and plan. Hypercalcemia has been corrected down to 10.8. Pulmonary consultation noted. She needs a bronchoscopy procedure which hopefully can be done tomorrow, July 26. Brain MRI scan is negative for metastatic disease. She appears to have a primary right upper lobe lung malignancy. She has a headache which she normally takes ibuprofen at home for which has been ordered. Lung sounds are diminished bilaterally with no rales or wheezing. Heart rhythm is regular.
--- NOTE | 2022-07-25 15:33 | Billing Data ---
Date of Service July 25, 2022 Coding Level of Care Code 94967 Subseq Hosp Care Lvl 2
--- NOTE | 2022-07-25 15:50 | Pulmonology Progress Note ---
Date of Service July 25, 2022 Assessment & Plan (1) Mass of right lung: (2) Hypercalcemia: Plan Highly suspect primary lung cancer with evidence of large right upper lobe mass and malignant hypercalcemia. Possible lymphangitic spread to the left upper lobe as well versus pneumonia. I attempted transthoracic needle aspiration using ultrasound guidance today. I was able to aspirate minimal material which will be sent to the lab. Bronchoscopic biopsy can be performed early next week by one my colleagues since I will be off after today. MRI brain negative for metastatic lesions. Patient will need outpatient PET scan. Recommend making oncology aware. Agree with IV fluids for hypercalcemia. Check PTH RP. Admission and Anticipated Discharge Date Admission Date: July 24, 2022 Subjective Patient denies any significant shortness of breath at rest or cough. No fevers or chills. Review of Systems Review of Systems: All systems reviewed & are unremarkable except as noted in HPI & below Physical Exam Physical Exam: Constitutional: Very thin appearing female in no apparent distress. Eyes: Pupils are equal round and reactive to light. Conjunctivae are normal. Anicteric sclera. Ears nose, mouth and throat: Mallampati class []. Normal posterior oropharynx. Uvula is midline. Neck: Trachea is midline. Visual inspection is normal. Respiratory: Diminished on the right. No wheezes. Cardiovascular: Regular rate and rhythm. No murmurs. No edema. Gastrointestinal: Normal bowel sounds, soft, nontender and nondistended. No hepatosplenomegaly noted. Musculoskeletal: No cyanosis. Patient is able to move all extremities. Skin: No rashes, warm dry and intact. Neurologic: No obvious focal neurological deficits seen. Psychiatric: Alert and oriented x3 with a euthymic affect. Results & Data Results & Data ([facility]) Vital Signs (Past 12 Hours) Vital Signs Temp Pulse Pulse Resp BP Pulse Ox O2 Del Method 07/25/22 15:26 86 07/25/22 11:39 37.2 C 90 18 134/66 92 Room Air 07/25/22 07:30 Room Air 07/25/22 06:03 93 H 07/25/22 07:50 37.2 C 95 H 18 141/74 H 91 Room Air PG Care Time/CCT Total # of Minutes Spent Total Time Spent with Patient: Total time spent is greater than 50% in coordination of care (as documented) at patient's floor/unit and/or counseling patient: Coding Level of Care Code 53465 Subseq Hosp Care Lvl 2 Diagnoses Mass of right lung R91.8 Hypercalcemia E83.52
[2022-07-25] MEDS ORDERED: LIDOCAINE 1% LOCAL 20 ML VIAL ONE (16:42)
--- NOTE | 2022-07-25 17:16 | Hospitalist Progress Note ---
Date of Service July 25, 2022 Assessment & Plan (1) Mass of right lung: Plan: Comments are preliminary based on chart review and discussion with the team only, I have not been able to speak directly with patient nor examine her. Situation unfortunately relatively straightforward with a large and complex right upper lung mass which is certainly malignant. It looks like there is potential involvement of nodes in the hilum and AP window though there is no clear indication of distant metastases based on available imaging. This includes MRI scan of the brain which shows no brain mets. Diagnostic bronchoscopy is scheduled for tomorrow. I have asked our staff to schedule her in the cancer center this Tuesday to see me so that we may be efficiently moving forward with prognosis and treatment option discussions anticipating that we should have pathology back by then from tomorrow's procedure. Prior to discharge I would assure that she has received a dose of Zometa to keep her calcium stable and as well it would be helpful if we can do a CT scan of the abdomen and pelvis. That should be the more completely assess for visceral metastases and gives us at least a fair assessment for any dramatic bony metastases. 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 Pivotal issue will be small cell versus non-small cell histology with the former requiring urgent initiation of chemotherapy. Even if this is a non-small cell lung cancer,she is not an a priori surgical candidate given the extent of the right lung involvement and we would probably be talking about additional chemotherapy anyway. Role for chemoradiation will depend on histology and ultimate determination of the presence or absence of more distant metastases. Plan Please formally consult if you or she have questions that need to be addressed prior to discharge. Otherwise as above would make sure she receives a dose of Zometa and hopefully can schedule a CT scan of the abdomen and pelvis prior to discharge. Bronchoscopy will be pivotal in determining histology, we will plan to see her in the office on July 30 to move to next steps in prognosis and treatment option discussions Admission and Anticipated Discharge Date Admission Date: July 24, 2022 Subjective Informally consulted on this patient who seems to be presenting with a new right lung cancer Physical Exam Physical Exam: Patient was not directly examined, comments are based on review of chart and discussion with the inpatient team Results & Data Results & Data ([facility]) Vital Signs (Past 12 Hours) Vital Signs Temp Pulse Pulse Resp BP Pulse Ox O2 Del Method 07/25/22 16:17 37.0 C 81 18 132/71 90 Room Air 07/25/22 15:26 86 07/25/22 11:39 37.2 C 90 18 134/66 92 Room Air 07/25/22 07:30 Room Air 07/25/22 06:03 93 H 07/25/22 07:50 37.2 C 95 H 18 141/74 H 91 Room Air Laboratory Results Abnormal lab results 07/24/22 07/24/22 07/24/22 Range/Units 17:55 17:55 20:17 WBC (4.8-10.8) K/ul RBC (3.93-5.22) M/uL Hgb (12.0-16.0) g/dl Hct (34.1-44.9) % RDW Coeff of Aroldo (11.5-14.5) % Lymph # (Auto) (1.2-3.4) K/uL Potassium (3.5-5.1) mmol/L Chloride (98-107) mmol/L BUN 28 H (6-23) mg/dl BUN/Creatinine Ratio 25.7 H (10-20) Calcium 11.7 H (8.5-10.1) mg/dl Ionized Calcium 1.74 H* (1.12-1.32) mmol/L PTH Intact 2.7 L (12.0-88.0) pg/ml 07/25/22 07/25/22 Range/Units 06:25 06:25 WBC 3.32 L (4.8-10.8) K/ul RBC 3.56 L (3.93-5.22) M/uL Hgb 9.5 L (12.0-16.0) g/dl Hct 28.7 L (34.1-44.9) % RDW Coeff of Aroldo 14.7 H (11.5-14.5) % Lymph # (Auto) 1.04 L (1.2-3.4) K/uL Potassium 3.3 L (3.5-5.1) mmol/L Chloride 108 H (98-107) mmol/L BUN (6-23) mg/dl BUN/Creatinine Ratio 22.5 H (10-20) Calcium 10.8 H (8.5-10.1) mg/dl Ionized Calcium (1.12-1.32) mmol/L PTH Intact (12.0-88.0) pg/ml Diagnostic Findings Chest CTA 07/24/22 12:13 CT ANGIOGRAPHY OF THE CHEST, PULMONARY EMBOLUS PROTOCOL CLINICAL HISTORY: Dyspnea. Cough. COMPARISON STUDY: Chest radiograph July 20, 2022. TECHNIQUE: Following IV administration of 114 mL of Optiray, helical axial images of the chest were obtained utilizing the pulmonary embolus protocol. Maximal intensity projections and sagittal and coronal reformats were viewed on an independent 3D workstation. IV contrast was administered without complication. Automated exposure control was utilized for the study. A dose lowering technique was utilized adhering to the principles of ALARA. CT DOSE: 295.37 mGy.cm FINDINGS: No pulmonary emboli are identified. However, multiple right-sided pulmonary arteries, including the distal right main pulmonary artery are significantly narrowed by a mass-like abnormality within the right upper and right middle lobes. This measures approximately 20 x 12 x 11.5 cm. The entire right upper and right middle lobes are opacified with occlusion of the right upper lobe and right middle lobe bronchi. Differentiation between a suspected central right lung mass and collapsed lung is difficult on this examination. This mass-like opacity abuts and may invade the mediastinum and likely narrows the SVC. This also abuts the anterior right chest wall. No associated rib erosion is present. There is no pneumothorax or pleural effusion. There are mild tree-in-bud and groundglass opacities within the right lower lobe. Multifocal left lung airspace opacities are noted within a bronchovascular distribution. There is associated mild interlobular septal thickening. Size of the heart is normal. There is no pericardial effusion. There are prominent hypodensity within the lymph nodes. There may be mildly enlarged left hilar lymph nodes as well. No suspicious lesions within the bony thorax are noted. Visualized portions of the upper abdomen are unremarkable. IMPRESSION: 1. No pulmonary emboli identified although multiple right sided pulmonary arteries significantly narrowed by a mass-like opacity within the right upper and right middle lobes. 2. Complete opacification of the right upper and right middle lobes with a mass- like opacity which abuts and may invade the mediastinum with SVC narrowing. This also abuts the right anterior chest wall. Differentiation between a suspected central lung mass and collapsed lung is difficult however the findings are highly suggestive of an underlying neoplasm. Occluded right upper and right middle lobe bronchi with narrowing of the right lower lobe bronchus. Pulmonary consultation for consideration for bronchoscopy is recommended. 3. Moderate left lung multifocal airspace opacities within a bronchovascular distribution. Associated groundglass opacities with interlobular septal thickening. This may reflect multifocal pneumonia. However, a neoplastic process is also within the differential. 4. Prominent AP window lymph nodes and suspected mildly enlarged left hilar lymph nodes. ACT 112: Positive. There are findings on this exam that require communication between the performing entity and the patient following Patient Test Result Information Act ([place] Act 112) guidelines. Electronically signed by: Carmine Burnett M.D. 07/24/2022 1:59 PM Brain MRI 07/24/22 16:09 MRI OF THE BRAIN WITHOUT AND WITH IV CONTRAST CLINICAL HISTORY: Abnormal chest CT. Evaluate for metastatic disease. COMPARISON STUDY: No previous studies for comparison. TECHNIQUE: Utilizing a 1.5 Shyanen magnet and dedicated coil, multiplanar, multiecho imaging of the brain was performed pre and postcontrast administration. IV administration of Gadavist contrast was uneventful. Thin cut T1 post contrast imaging was performed. FINDINGS: This study is mildly compromised by motion artifact although is diagnostic. There are no foci of restricted diffusion to suggest acute infarct. No acute intracranial hemorrhage, midline shift or mass effect is present. Brain volume is normal. Ventricular system is normal. Basal cisterns are patent. There are no extra axial collections. Flow-voids for the major intracranial vessels are present. There is no intracranial mass or pathologic enhancement. A few small white matter T2 hyperintense foci suggest mild small vessel disease. No suspicious calvarial replacement is present. There are air-fluid levels within the maxillary and sphenoid sinuses. IMPRESSION: 1. No evidence of metastatic disease. 2. No acute intracranial findings. 3. Maxillary and sphenoid sinus air-fluid levels. This could reflect acute sinusitis. ACT 112: Negative or not required by law. Electronically signed by: Carmine Burnett M.D. 07/24/2022 5:59 PM PG Care Time/CCT Total # of Minutes Spent Total Time Spent with Patient: Total time spent is greater than 50% in coordination of care (as documented) at patient's floor/unit and/or counseling patient: Coding Level of Care Code None Diagnoses Mass of right lung R91.8
--- NOTE | 2022-07-25 17:45 | XRay Report ---
XR chest 1V portable HISTORY: 61 years-old Female s/p transthoracic needle aspiration of RUL mass follow-up study in a pa tient with right upper lobe mass COMPARISON: CTA chest 07/24/2022 TECHNIQUE: AP view of the chest FINDINGS: Cardiomediastinal and hilar silhouettes are unchanged. There is a large masslike opacity again noted involving the majority of the right hemithorax along with left perihilar airspace opacities. No pneum othorax or large pleural effusion. No overt pulmonary edema. Bones appear grossly intact. IMPRESSION: 1. No pneumothorax. 2. Large masslike opacity involving the majority of the right hemithorax redemonstrated along with le ft perihilar airspace opacities. Findings are better characterized on yesterday's CTA of the chest. ACT 112: Negative or not required by law. The above report was generated using voice recognition software. It may contain grammatical, syntax o r spelling errors. Electronically signed by: Lorne Smart M.D. 07/25/2022 5:42 PM
[2022-07-25] MEDS: cefTRIAXone SODIUM 2,000 MG in DEXTROSE 5% 50 ML IV SCH (17:50)
--- NOTE | 2022-07-25 18:34 | Procedure Note ---
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 Appropriate imaging studies were reviewed prior to the procedure. Patient was placed in semi-recumbent and limited thoracic ultrasound was performed of the right chest. See separate imaging. The site appropriate for needle biopsy was selected. The skin was prepped and draped in normal sterile fashion. Lidocaine was used for local anal gesia. I performed several passes of the right upper lobe mass using a 22-gauge needle an 18-gauge needle which was then flushed into formalin and saline. The patient tolerated the procedure well [place] [id number]
[2022-07-25] MEDS: IBUPROFEN 200 MG TAB PO PRN (20:10)
[2022-07-26] MEDS: SODIUM CHLORIDE 0.9% 1000ML 1,000 ML IV SCH ×2 (01:38→10:52)
--- NOTE | 2022-07-26 05:56 | Electrocardiogram Report ---
Test Reason : Blood Pressure : / mmHG Vent. Rate : 082 BPM Atrial Rate : 082 BPM P-R Int : 118 ms QRS Dur : 108 ms QT Int : 344 ms P-R-T Axes : 085 067 066 degrees QTc Int : 401 ms Normal sinus rhythm Possible Left atrial enlargement Incomplete right bundle branch block No previous ECGs available Confirmed by Lex Morse ([id number]) on 07/26/2022 5:55:39 AM Referred By: Rina Schafer Confirmed By:Lex Morse
--- NOTE | 2022-07-26 08:11 | Pulmonology Progress Note ---
Date of Service July 26, 2022 Assessment & Plan (1) Mass of right lung: (2) Hypercalcemia: Plan Impression: 61-year-old female with right upper lobe lung mass and malignant hypercalcemia. Possible infiltrate in the left upper lobe consistent with infectious process. Recommendations: 1. Lung mass: The patient underwent transthoracic needle aspiration yesterday. Pathology is currently pending but will not likely be available until later today or likely first thing tomorrow. Discussed with the patient as well as with her daughter on the phone. They would like to proceed with bronchoscopy acknowledging the fact that we may have diagnostic material already present. They were under the impression that a bronchoscopy would give definitive diagnosis immediately. I advised them that although we would have rapid onsite cytologic evaluation, this information would not be actionable and would require final definitive diagnosis by pathology which again would take the same amount of time as the transthoracic needle specimens. After discussion, they have elected to proceed with bronchoscopy this morning acknowledging that we may already have a tissue diagnosis. She can likely be discharged after the procedure is completed and follow-up with oncology on Tuesday as noted in the medical oncology consultation. 2. Questionable pneumonia left upper lobe. Recommend completing course of second-generation cephalosporin orally for additional 5 days and then stop. Fol low-up imaging per radiation oncology. 3. Patient to follow-up with Dr. Grider in the outpatient pulmonary clinic if needed. Will complete bronchoscopy today and then the patient will be eligible for discharge. Feel free to contact us with questions or concerns Admission and Anticipated Discharge Date Admission Date: July 24, 2022 Subjective Patient seen and examined. 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 Patient is awake alert and conversant. She is on room air. She denies any pain from a previous biopsy site. Has been made n.p.o. for bronchoscopy this morning. No new complaints or concerns. Review of Systems Review of Systems: All systems reviewed & are unremarkable except as noted in Subjective Physical Exam Constitutional: WD/WN, vitals as above ENMT: Mallampati Class: II Neck: trachea midline, no thyromegaly Respiratory: normal respiratory effort, lungs clear to auscultation Cardiovascular: RRR, no murmur, no edema Gastrointestinal (Abdomen): normal bowel sounds, soft, nontender, no hepatosplenomegaly Musculoskeletal: Extremities: extremities normal to inspection Skin: no rashes, warm and dry Neurologic: Nonfocal exam Lymphatic: no cervical lymphadenopathy Results & Data Results & Data ([facility]) Vital Signs (Past 12 Hours) Vital Signs Temp Pulse Pulse Resp BP Pulse Ox O2 Del Method 07/26/22 07:41 Room Air 07/26/22 06:01 91 H 07/26/22 02:54 36.6 C 65 16 119/70 92 Room Air 07/25/22 23:37 36.7 C 71 16 134/74 92 Room Air 07/25/22 23:17 72 Critical Care Results & Data Vital Signs (Past 12 Hours) Vital Signs Temp Pulse Pulse Resp BP Pulse Ox O2 Del Method 07/26/22 07:41 Room Air 07/26/22 06:01 91 H 07/26/22 02:54 36.6 C 65 16 119/70 92 Room Air 07/25/22 23:37 36.7 C 71 16 134/74 92 Room Air 07/25/22 23:17 72 Lab & Micro Results (Past 24 Hours) No Data to Display No Data to Display No Data to Display Microbiology 07/24/22 14:25 Aerobic Blood Culture - Preliminary Blood No growth in Aerobic bottle after 24 hours. Anaerobic Blood Culture - Preliminary No growth in Anaerobic bottle after 24 hours. 07/24/22 14:25 Aerobic Blood Culture - Preliminary Blood No growth in Aerobic bottle after 24 hours. Anaerobic Blood Culture - Preliminary No growth in Anaerobic bottle after 24 hours. Diagnostic Findings (Past 24 Hours) Chest X-Ray 07/25/22 17:18 XR chest 1V portable HISTORY: 61 years-old Female s/p transthoracic needle aspiration of RUL mass follow-up study in a patient with right upper lobe mass COMPARISON: CTA chest 07/24/2022 TECHNIQUE: AP view of the chest FINDINGS: Cardiomediastinal and hilar silhouettes are unchanged. There is a large masslike opacity again noted involving the majority of the right hemithorax along with left perihilar airspace opacities. No pneumothorax or large pleural effusion. No overt pulmonary edema. Bones appear grossly intact. IMPRESSION: 1. No pneumothorax. 2. Large masslike opacity involving the majority of the right hemithorax redemonstrated along with left perihilar airspace opacities. Findings are better characterized on yesterday's CTA of the chest. ACT 112: Negative or not required by law. The above report was generated using voice recognition software. It may contain grammatical, syntax or spelling errors. Electronically signed by: Lorne Smart M.D. 07/25/2022 5:42 PM I & O Totals 24 Hours 07/25/22 07/26/22 07/27/22 06:59 06:59 06:59 Intake Total 3202.5 / 3202.5 4307.500 / 4307.500 Balance 3202.5 / 3202.5 4307.500 / 4307.500 Cumulative 07/24/22 11:36 thru 07/26/22 06:00 Intake Total 7510.000 Balance 7510.000 RT Ventilator Mngmt (Last Documented) Ventilator Ordered Settings Respiratory Rate 16 07/26/22 02:54 Ventilator - PT Measurements Respiratory Rate 16 PG Care Time/CCT Total # of Minutes Spent Total Time Spent with Patient: Total time spent is greater than 50% in coordination of care (as documented) at patient's floor/unit and/or counseling patient: Coding Level of Care Code 38347 Subseq Hosp Care Lvl 3 Diagnoses Mass of right lung R91.8 Hypercalcemia E83.52
[2022-07-26] MEDS ORDERED: MIDAZOLAM HCL 5 MG/ML 1 ML VIAL ONE (08:15)
[2022-07-26] MEDS ORDERED: fentaNYL citrate 100 MCG/2 ML VIAL ONE ×2 (08:15→08:50)
--- NOTE | 2022-07-26 08:25 | Pre Anesthesia Assessment ---
Date of Service July 26, 2022 Pre Sedation Assessment Vital Signs Temp Pulse Pulse Resp BP BP Pulse Ox 07/26/22 08:18 86 18 116/71 95 07/26/22 07:41 07/26/22 06:01 91 H 07/26/22 02:54 36.6 C 65 16 119/70 92 07/25/22 23:37 36.7 C 71 16 134/74 92 07/25/22 23:17 72 07/25/22 19:47 36.8 C 69 18 114/67 92 07/25/22 19:43 07/25/22 16:17 37.0 C 81 18 132/71 90 07/25/22 15:26 86 07/25/22 11:39 37.2 C 90 18 134/66 92 O2 Del Method 07/26/22 08:18 Room Air 07/26/22 07:41 Room Air 07/26/22 06:01 07/26/22 02:54 Room Air 07/25/22 23:37 Room Air 07/25/22 23:17 07/25/22 19:47 Room Air 07/25/22 19:43 Room Air 07/25/22 16:17 Room Air 07/25/22 15:26 07/25/22 11:39 Room Air Pre-Sedation Airway Assessment Smoking Status: Never smoker Hx Sleep Apnea: No Short, Thick Neck: No Thyromental Distance: > or= 3.5 Finger Breadths Oral Cavity: + WNL Mallampati Class: I ASA: ASA2 NPO Status Date of Last Intake of Fluids: 07/25/22 Date of Last Intake of Solid Food: 07/25/22 Notes The planned sedation has been discussed with the patient. Informed Consent was obtained. I have identified the patient, determined the appropriateness of sedation and have assessed the patient immediately prior to the procedure. All medicine(s) and interventions are by my order.
[2022-07-26] MEDS ORDERED: MIDAZOLAM HCL 1 MG/ML 2ML VIAL ONE ×2 (08:36→08:50)
--- NOTE | 2022-07-26 09:19 | Procedure Note ---
Procedure Note Date of Service July 26, 2022 Note Procedure: Fiberoptic bronchoscopy Endobronchial ultrasound evaluation during bronchoscopy Endobronchial ultrasound with transbronchial needle aspiration of lymph nodes, 3 stations Bronchoalveolar lavage Conscious sedation Provider: Clay Perea MD Consent: Signed by patient and timeout verified prior to procedure. Sedation start: 827 Sedation end: 859 Conscious sedation: 200 mcg fentanyl, 8 mg Versed, topical lidocaine per RT protocol Estimated blood loss: 10 mL Indication: Abnormal CT scan Procedure: Patient was brought to the bronchoscopy suite. Consent was verified. Appropriate radiographic studies had been reviewed prior to the procedure. Standard monitoring was applied. Oxygen was administered. Patient underwent a transthoracic needle aspiration yesterday with pathology pending. I discussed with the patient and her daughter options to include proceeding with procedure today given the fact that we may already have a tissue diagnosis versus waiting. They elected to proceed acknowledging the risks. After topical anesthesia of the airways per respiratory therapy protocol, the fiberoptic scope was advanced through the oropharynx via the bite-block. Oropharynx was unremarkable. Vocal cords were visualized and were normal in function and appearance. Topical anesthesia of the cords was achieved with instillation of lidocaine through the scope. Scope was then passed through the vocal cords. The trachea was midline. Main lemuel was sharp. Anesthesia of the lower airways was achieved with instillation of lidocaine through the scope. A sequential and systematic examination of the lower airways was conducted. The right-sided airways were abnormal with significant extrinsic compression of the right upper lobe and bronchus intermedius. I was not able to pass the scope into the right upper lobe. We were able to get down to the RC 3 region. And the mucosa appeared hyperemic and congested. Left-sided airways were patent and the mucosa appeared normal. There were significant mucopurulent secretions emanating from the left upper lobe which were collected with a BAL of the left upper lobe. This will be sent for microbiologic analysis. After the inspection bronchoscopy was completed, the endobronchial ultrasound was then used to survey the mediastinal lymph node stations. Masslike consolidation was present in the 4R and 10 R regions. It was difficult discern discrete lymph nodes as the mass appeared to confluence. There was a 8 mm lymph node identified in the level 7 space. Under direct ultrasound visualization, and using a 21-gauge needle, passes were taken of the mass within the 4R and 10 R region. Rapid onsite cytologic evaluation confirmed cellularity. Passes were also taken of the level 7 lymph node. At that point time the patient had some transient oxygen desaturations to about 86% necessitating increasing oxygen requirement. In addition she received a large amount of sedation. Was felt that we had adequate cytologic material to terminate the procedure. The bronchoscope was then removed from the airways. The patient tolerated the procedure well without obvious complication. Patient was returned to the recovery room. Impression: 1. Extrinsic compression right middle lobe and bronchus intermedius with abnormal right-sided mucosa 2. Mass consolidation present in the 4R paratracheal region extending down to the 10 R hilar region. Successfully biopsied with ultrasound guidance and 21- gauge needle. 3. Subcarinal adenopathy status post fine-needle aspiration. Await final path. The patient can be dismissed from the hospital later today and follow-up with oncology later this week. Results were reviewed preliminarily with the patient's at the conclusion of the procedure. Advised him that she may experience some mild cough with some blood-tinged phlegm over the next 24 hours. She should return to the emergency room for coughing up mouthfuls of blood, fever greater than 101, or increasing chest pain or shortness of breath. Coding CPT Codes Pulmonary/Thoracic - Pulmonary and Thoracic: 87790 Bronchoscopy, w/EBUS, 3+ mediastinal ([id number]) Pulmonary/Thoracic - Pulmonary and Thoracic: 31519 Dx bronchoscopy/BAL ([id number]) Sedation/Anesthesia - Sedation/Anesthesia: 12564 Mod Sedation by the same physician;Init15 Min Child Age 5 & Up ([id number]) Sedation/Anesthesia - Sedation/Anesthesia: 82271 Mod Sedation by the same physician; Ea [id number] Minutes ([id number]) [facility] Procedure Codes (Charges) Pulmonary/Thoracic Procedure 1: Pulmonary and Thoracic: 76809 Bronchoscopy, w/EBUS, 3+ mediastinal Procedure 2: Pulmonary and Thoracic: 52508 Dx bronchoscopy/BAL Sedation/Anesthesia Procedure 3: Sedation/Anesthesia: 74609 Mod Sedation by the same physician;Init15 Min Child Age 5 & Up Total Sedation Time (minutes): 30 Procedure 4: Sedation/Anesthesia: 72189 Mod Sedation by the same physician; Ea [id number] Minutes Total Sedation Time (minutes): 30
[2022-07-26 10:22] LABS: Basophils # (auto) 0.02 K/uL (0-0.2); Basophils % (auto) 0.6 %; Eosinophils # (auto) 0.02 K/uL (0-0.50); Eosinophils % (auto) 0.6 %; Hematocrit (blood only) 29.2 % (34.1-44.9); Hemoglobin 9.4 g/dl (12.0-16.0); Lymphocytes # (auto) 1.08 K/uL (1.2-3.4); Lymphocytes % (auto) 32.6 %; Mean Corpuscular Hgb Conc 32.2 g/dL (32.0-36.0); Mean Corpuscular Volume 80.9 fL (80.0-100.0); Mean Platelet Volume 10.3 fL (9.4-12.3); Monocytes % (auto) 15.1 %; Neutrophils # (auto) 1.69 K/uL (1.4-6.5); Neutrophils % (auto) 51.1 %; Platelet Count 199 K/uL (130-400); RDW Standard Deviation 44.7 fL (36.4-46.3); Red Blood Count 3.61 M/uL (3.93-5.22); White Blood Count 3.31 K/ul (4.8-10.8)
[2022-07-26 11:12] LABS: BUN Creatinine Ratio 17.8 (10-20); Calcium 10.8 mg/dl (8.5-10.1); Creatinine Clr Calc Pharmacy 62.9 ml/min; Est GFR (African American) 78.9 ml/min; Potassium 3.6 mmol/L (3.5-5.1)
[2022-07-26] MEDS: CHOLECALCIFEROL 1,000 UNITS 25 MCG TAB PO SCH (11:19)
[2022-07-26] MEDS: MULTIVITAMIN TAB PO SCH (11:19)
[2022-07-26] MEDS: FLUTICASONE PROPIONATE NA SPR 16 GM BTL SCH (11:21)
[2022-07-26] MEDS: PSYLLIUM or GUAR GUM FIBER POWDER PACKET PO SCH (11:22)
[2022-07-26] MEDS: OSELTAMIVIR PHOSPHATE SUSP 75 MG/12.5 ML UDP PO SCH (11:28)
[2022-07-26] MEDS: IBUPROFEN 200 MG TAB PO PRN (11:29)
[2022-07-26] MEDS ORDERED: OPTIRAY 350 100ml IV ONE (13:28)
--- NOTE | 2022-07-26 14:09 | CT Scan Report ---
CT OF THE ABDOMEN WITH CONTRAST CLINICAL HISTORY: tumor staging, assess for visceral metastases. COMPARISON STUDY: None. TECHNIQUE: Following IV administration of 94 mL of Optiray, axial images of the abdomen were obtained from the lung bases to the proximal femurs. Images were reviewed in the axial, sagittal, and coronal planes. IV contrast was administered without complication. Automated exposure control was utilized for the study. A dose lowering technique was utilized adhering to the principles of ALARA. Oral cont rast was administered. CT DOSE: 149.80 mGy.cm FINDINGS: Right middle lobe airspace opacity is better depicted on recent chest CT. The adrenal gland s, spleen and pancreas are unremarkable. Numerous bilateral renal calculi measure up to 5 mm. There i s no hydronephrosis. Liver morphology is normal. Note is made of a capsular/subcapsular 1.7 cm hypode nse segment 7 focus on image 64 of 231. In addition, there is a 1.7 cm intermediate attenuation subca psular segment 8 lesion on axial image 86. This may have nodular peripheral enhancement. No biliary o r pancreatic ductal dilatation is present. The pelvis was not imaged on this exam. Caliber and wall t hickness of visualized small and large bowel are normal. There is no ascites. There is no abdominal l ymphadenopathy. No suspicious lesions within the visualized skeletal structures are present. IMPRESSION: 1. 1.7 cm segment 8 hepatic lesions. A few hemangioma is favored however a metastasis could appear si milar. This could be evaluated with PET/CT or MRI. 2. 1.7 cm capsular/subcapsular segment 7 focus which is probably benign but can be assessed on follow -up studies. 3. No adrenal metastases. 4. No abdominal lymphadenopathy. ACT 112: Negative or not required by law. Electronically signed by: Carmine Burnett M.D. 07/26/2022 2:07 PM
[2022-07-26] MEDS: cefTRIAXone SODIUM 2,000 MG in DEXTROSE 5% 50 ML IV SCH (15:31)
[2022-07-26] MEDS: ZOLEDRONIC ACID 4 MG in 0.9 % SODIUM CHLORIDE 100 ML IV ONE ×2 (16:24→17:12)
--- NOTE | 2022-07-26 18:31 | Discharge Summary ---
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 Patient has had an ongoing nonproductive cough since January with progressive fatigue and exertional shortness of breath since then. She has also lost 10 pounds over the last year, which has been unintentional. Since the summer, she has noticed new shortness of breath with walking up hills and exercising. She is previously very healthy and active, working out 5-7 days/week without difficulty previous to this summer. She has had several upper respiratory illnesses in the past 2 months, one at the end of May which was not COVID, and most recently had COVID 3 weeks ago and was treated with outpatient antibiotics and initially thought she recovered, however shortness of breath returned, worse than normal and is causing her to be significantly dyspneic after walking up and down the stairs. She was recently seen as an outpatient for this and had CXR and blood work done. She received a call about findings on her CXR, and was to have an outpatient CT scan done yesterday, however insurance did not approve this. On presentation, her vital signs are within normal limits and stable. She is 99% on room air. Labs are remarkable for a leukopenia of 3.94, Hgb 11.1, platelets within normal limits. Calcium 13.1. CXR from 07/20 shows a large right upper lobe masslike opacity, measuring 12.6 x 8.5 cm with suspected small right pleural effusion, possibly representing underlying mass cannot be excluded. Chest CTA in ED today shows complete opacification of the right upper and middle lobes with masslike opacity with abuts and may invade mediastinum with SVC narrowing, also abuts the right anterior chest wall. Suspected central lung mass versus collapsed lung, however read as highly suspicious for underlying neoplasm per radiology. There is also an occluded right upper and right middle lobe bronchi with narrowing of the right lower bronchus. There is also moderate left lung multifocal airspace opacities within a bronchovascular distribution, associated groundglass opacities with interlobular septal thickening, possibly reflection of multifocal pneumonia versus neoplastic process. There are prominent AP window lymph nodes if suspected mildly enlarged left hilar lymph nodes. Pulmonary emboli identified, however there are multiple right-sided pulmonary artery significantly narrowed by the masslike opacity within the right upper and middle lobes. Admission Exam Per Admitting Provider General: awake, alert, no apparent distress Head: Normocephalic, atraumatic ENT: PERRL, EOMI, no pharyngeal exudate, mucous membranes moist Chest: Clear to auscultation, on room air, no adventitious breath sounds Cardiac: Regular rate and rhythm, no murmur, no JVD, normal peripheral pulses, good capillary refill Abdominal: NABS x 4 quadrants, soft, nontender to palpation, no rebound, guarding or tenderness Extremities: Normal inspection, no peripheral edema or erythema, calfs nontender to palpation Psych: Normal mood and affect Neuro: AAO x 3, strength intact bilaterally and rated 5/5, no motor deficits, speech is clear, no peripheral sensory deficits Skin: no rash or erythema Principal Diagnosis Right lung mass, influenza A Discharge Exam General: No acute distress HEENT: PERRLA. Normal conjunctiva, anicteric sclera. Oropharynx normal. Respiratory: Normal respiratory effort, CTA BL. Cardiovascular: RRR without murmurs, gallops, or rubs. No edema. GI: Soft abdomen with normal bowel sounds heard on auscultation. Nontender x4 quadrants Neuro: Alert and oriented x3. Discharge Data Allergies Allergy/AdvReac Type Severity Reaction Status Date / Time No Known Allergies Allergy Verified 07/24/22 15:03 Consultations 07/24/22 14:16 ED Decision to Admit Stat 07/24/22 20:06 Consult Pulmonology Routine Procedures Performed Operation Date: 07/26/22 08:30 Actual Procedures p Bronchoscopy Radiology - Clay Perea MD Ordered Studies 07/24/22 12:13 CT angio chest PE protocol Stat 07/24/22 16:09 MR brain wo/w con Stat 07/25/22 16:04 US point of care ultrasound Urgent 07/26/22 08:26 CT Abd and Pelvis [CT abdomen oral and IV con] Routine Hospital Course (1) Mass of right lun-year-old woman with past medical history of melanoma s/p excision (approximately 30 years ago), volvulus c/b colonic resection (~20 years ago) who presented to hospital with progressive dyspnea on exertion, fatigue and admitted for right lung mass, viral pneumonia. Right lung mass/hypercalcemia -Nonproductive cough, worsening fatigue, dyspnea on exertion since January. Unintentional 10 pound weight loss since April. Patient is a lifelong non- smoker without family history of lung cancer. -CXR 07/20 showed large right upper lobe opacity 12.6 x 8.5 cm. Chest CTA showed complete opacification of right upper and middle lobes with masslike opacity possibly invading mediastinum (SVC narrowing), right anterior chest wall. -Leukopenia 3.94, calcium 13.1 noted on admission. PTH low at 2.7, PTHrP pending at time of discharge. -Pulmonary consult: Suspect primary lung cancer, malignant hypercalcemia with possible lymphangitic spread to left upper lobe as well (vs pneumonia). MRI brain ordered for staging purposes (negative). Also recommended outpatient PET scan. -Bronchoscopic biopsy completed Tuesday. Biopsy sample sent to pathology. -Oncology made aware. Spoke with Dr. Arceo, who recommended ordering CT A/P for staging purposes (showed 2 small subcapsular hepatic lesions), administering 1 dose IV zoledronic acid for hypercalcemia, which she received prior to discharge. Patient tentatively scheduled for outpatient follow-up with Dr. Arceo 07/30/2022. -Patient received 1 dose of IV Zosyn in the ED, switched to ceftriaxone. MRSA nares swab negative. Antibiotics not continued on discharge. Influenza A -Continue Oseltamivir 75 mg twice daily on discharge. (2) Dyspnea: (3) Chronic cough: (4) Hypercalcemia: (5) Pneumonia: Total Time Total Time Spent Total Time Spent (In Minutes): 20 Discharge Plan Discharge Items Patient Disposition: Home - Self-Care Reason For Visit: PNEUMONIA Discharge Diagnosis: Right lung mass, influenza A Activity: Per Instructions section Non-emergency contact: Primary Care Provider and Oncologist Call non-emergency contact if: you have any medication questions, your symptoms worsen and your temperature is above 101 Follow-up/Referrals: Haim Arceo MD [Physician] - (Dr. Arceo's office will be in contact with you with an appointment time for 07/30/2022. If you do not hear from the office by Tuesday please give them a call at [phone]) Rina Schafer DO [Primary Care Provider] - (Please call to schedule an appointment in 7-10 days) Diet: Regular Addtl Attending Provider Instructions: Dear Gloria Dao, You came to the hospital with 6 months of worsening shortness of breath, dry cough, and unintentional weight loss. You were also sent to the hospital by your primary care physician after your outpatient chest x-ray. After you were admitted to the hospital, we ordered a CT scan of your chest, which confirmed the presence of a mass in the upper and middle lobes of your right lung. We consulted the pulmonary service, who reviewed your chest imaging. They felt that the image findings, in addition to the lab work that showed hypercalcemia, were most likely due to a cancerous process. They recommended that you undergo a bronchoscopy, or a video-guided exploration of your lungs and lung mass in order to obtain a sample to be biopsied by the pathologist. They also recommended you receive an MRI of your brain, in order to determine if there was any metastasis, or spread, of the lung mass. There was no evidence of metastasis on the MRI. We also contacted our oncology service in order to make them aware of your situation, in order to coordinate close follow-up care. They determined it was best to follow-up with you in the outpatient setting but requested some additional CT imaging of your abdomen and pelvis, which has been completed. There was no evidence of a mass or other lesions indicative of a cancerous process on the CT scan of your abdomen and pelvis. They also requested that you receive a one-time dose of zoledronic acid in order to manage her hypercalcemia prior to your appointment You underwent the bronchoscopic biopsy procedure today, which you tolerated well. The samples were obtained and sent to pathology. Those results are still pending but will be made available to you as soon as they are ready, likely tomorrow, or the day after. During your admission, you also tested positive for influenza A, and we treated you with antiviral medication, and provided supportive therapies to manage your concurrent symptoms. However, now that you have completed most of the diagnostic work-up, we feel that you are stable enough to be safely discharged home. Medications Please take your medications as directed, unless otherwise instructed by your primary care physician or specialist. If you have any questions regarding the medication, you may contact the pharmacy or you pick it up, or call the hospital at [phone] for more information. * We are sending a medication called oseltamivir, or Tamiflu, to your pharmacy. Please take oseltamivir 75 mg twice daily for 3 more days (for a total 5-day course). Follow-up care As mentioned in our conversation this afternoon, our hospital oncologist, Dr. Arceo is aware of, and has been following your case. You have an outpatient appointment with Dr. Arceo this 07/30/2022. Dr. Arceo's office will be in contact with you with an appointment time. If you do not hear from the office by Tuesday, please give them a call at [phone]. I also relayed to him your daughter's request that they try to schedule you for the PET scan this , before the appointment on Tuesday. He is aware of your request and will try to have it scheduled to be done on that day, if possible. You may call his clinic at the above number, or contact the radiology/imaging service at [phone], if you do not hear from his clinic. A follow-up appointment will be made for you by our hospital surveillance investigator with your primary care physician (PCP), Dr. Rina Schafer in 1-2 weeks after your dis charge. If you do not hear from her office by Tuesday, please give them a call at [phone]. Please make sure you attend all of your follow-up appointments. It is very important in order to coordinate your care that you do so. If you have any problem with the scheduled times, or you experience any difficulty that makes it difficult to attend, please contact the clinic in order to make additional/alternate arrangements. Thank you for entrusting [facility] with your care. We wish you all the best in your medical journey. If you have any questions or concerns at all about your stay, please give us a call at [phone]. Pending Studies at Discharge: No Stand-Alone Forms: My [facility], Smoking Cessation Medications and DC Order Prescriptions: New oseltamivir [Tamiflu] 6 mg/mL Suspension For Reconstitution 75 mg PO BID 3 Days Qty: 75 0RF Continued multivitamin Tablet 1 tab PO DAILY cholecalciferol (vitamin D3) [Vitamin D3] 50 mcg (2,000 unit) Capsule 50 mcg PO DAILY magnesium glycinate 100 mg Tablet 100 mg PO HS PRN (Reason: LEG CRAMPS) Metamucil 3.4 gram/5.4 gram Powder 1 tsp PO DAILY Rx Instructions: mix into at least 4 oz water or juice before administering Discharge Orders: Discharge Order (Routine); Ordered 07/26/22 Ordered By: Cecy Reed Admission Data Admit Date/Time: 07/24/22 14:36 Attending Provider: Teresa Bermudez Admit Provider: Peña Ferguson Primary Care Provider: Rina Schafer Other Providers: Peña Ferguson ; Tip Licea Other Interventions: Discharge Summary Assessment (RN) Last Done: 07/26/22 17:58 Supervising Physician Co-Signing Physician Notes Resident Physician Supervision Note: I independently interviewed and examined the patient and verified the prieto history and physical, reviewed labs and image studies and agree with resident findings and care plan. Resident Activity Tracking Resident Involvement: Resident Care Provided Care Provided: Adult Hospital Medicine
--- NOTE | 2022-08-02 16:18 | Coding Query ---
PATHOLOGY To promote full compliance with coding requirements relating to patient care, physician participation is requested in all cases of medical research assistant uncertainty. Please assist us with the question(s) below: Please review the Pathology report and document any relevant diagnosis(es) below. Pt with lung mass/ bronchoscopy and endoscopic lymph node biopsies. Thanks for your help. LONNIE Killian [facility] Diagnosis(es): MTDD
--- NOTE | 2022-08-11 05:28 | Coding Query ---
PATHOLOGY To promote full compliance with coding requirements relating to patient care, physician participation is requested in all cases of box shook patcher uncertainty. Please assist us with the question(s) below: Please review the Pathology report and please document any relevant diagnosis(es) below: Please review the 07/26 EBUS/lymph node biopsies and provide a diagnosis. Thank you. Ashok [facility] Diagnosis(es): MTDD
== END 2022-07-26 18:33 | disposition home or self-care (01) | DRG 166 ==
LOC: ED 11:36 → 2W 14:36 → SUATTDRO 14:36 → 2W 19:18